=== PATIENT | male | born 1995 | race Caucasian/White ===

== ENCOUNTER 2020-04-21 19:02 | Emergency (ER) | payer BC ==
[~2020-04-21] VITALS: Ht 177.8 cm; Wt 81.8 kg
[2020-04-21] MEDS ORDERED: ibuprofen tablet 400 MG TABLET PO ONE (20:50)
[2020-04-21] MEDS ORDERED: acetaminophen 325mg tablet PO ONE (20:50)
[2020-04-21 21:59] VITALS: BP 116/82
== END 2020-04-21 22:00 | disposition home or self-care (01) ==
LOC: ER 19:03
DX: S69.92XA Unspecified injury of left wrist, hand and finger(s), initial encounter (principal); S50.812A Abrasion of left forearm, initial encounter; M79.632 Pain in left forearm; M79.89 Other specified soft tissue disorders; W19.XXXA Unspecified fall, initial encounter; Y93.89 Activity, other specified; Y92.89 Other specified places as the place of occurrence of the external cause; Y99.8 Other external cause status
CPT/HCPCS: 29125; 73090; 73110; 99284